=== PATIENT | female | born 1985 | race African-American/Black ===

== ENCOUNTER 2020-09-15 22:25 | Emergency (ER) | payer OTHER ==
[~2020-09-15] VITALS: Ht 144.8 cm; Wt 73.0 kg
[2020-09-15 22:56] VITALS: BP 134/86
[2020-09-16 00:01] LABS: CLARITY URINE CLOUDY (CLEAR); COLOR URINE YELLOW (YELLOW); KETONES URINE NEGATIVE (NEGATIVE); LEUKOCYTE ESTERASE URINE 3+ (NEGATIVE); NITRITE URINE POSITIVE (NEGATIVE); OCCULT BLOOD URINE 3+ (NEGATIVE); PH URINE 6.5 (4.5-8.0); PROTEIN URINE TRACE (NEGATIVE); SPECIFIC GRAVITY URINE 1.014 (1.005-1.030)
[2020-09-16] MEDS ORDERED: CIPR500T5 MT (00:33)
== END 2020-09-16 01:25 | disposition home or self-care (01) ==
LOC: ER 22:25
DX: N39.0 Urinary tract infection, site not specified (principal)
CPT/HCPCS: 81003; 81025; 87077; 87186; 99283